=== PATIENT | male | born 1955 | race Caucasian/White ===

== ENCOUNTER 2017-10-03 08:42 | Emergency (ER) | payer SELFPAY ==
[~2017-10-03 08:42] MED LIST: Sodium Chloride 0.9% 1,000 ML BAG ONE; Sodium Chloride 0.9% 100 ML BAG ONE; Sodium Chloride 0.9% 500 ML BAG ONE
[2017-10-03] MEDS ORDERED: Pantoprazole 40 MG VIAL ONE ×2 (09:47→10:52)
[2017-10-03 09:56] LABS: INR-International Normal Ratio 1.1; PTT 26.3 SEC (22.9-36.1)
[2017-10-03 10:01] LABS: #Basophils 0.2 thou/uL (0.0-0.2); #Eosinphils 0.5 thou/uL (0.0-0.7); #Lymphocytes 2.8 thou/uL (1.20-3.40); #Monocytes 1.2 thou/uL (0.11-0.59); #Neutrophils 9.3 thou/uL (1.40-6.50); %Basophils 1.2 % (0.0-1.0); %Eosinophils 3.4 % (0.0-10.0); %Lymphocytes 19.9 % (21.0-51.0); %Monocytes 8.9 % (0.0-10.0); %Neutrophils 66.6 % (42.0-75.0); Hemoglobin 9.2 g/dL (14.0-18.0); Mean Corpuscular HGB CONC 35.6 g/dL (32.0-36.0); Mean Corpuscular Hemoglobin 34.9 pg (27.0-31.0); Mean Platelet Volume 7.1 fL (7.4-10.4); Platelet Count 242 thou/uL (130-400); RBC Distribution Width 12.2 % (11.5-14.5); Red Blood Cell (RBC) Count 2.63 mill/uL (4.70-6.10)
[2017-10-03 10:04] LABS: ALT (SGPT) 31 U/L (8-55); AST (SGOT) 31 U/L (5-34); Albumin 3.9 g/dL (3.4-4.8); Alkaline Phosphatase 71 U/L (40-150); Anion Gap 14 mmol/L (10-20); Anisocytosis SLIGHT = 6-15 cells (100X) (0-5/hpf); BUN (Urea Nitrogen) 24 mg/dL (8.4-25.7); Bilirubin, Total 0.5 mg/dL (0.2-1.2); Calc. Creatinine Clearance 0 mL/min (70-130); Calcium 8.7 mg/dL (7.8-10.44); Carbon Dioxide 23 mmol/L (23-31); Chloride 106 mmol/L (98-107); Estimated GFR-MDRD Greater than 90; Globulin 2.9 g/dL (2.4-3.5); Glucose 103 mg/dL (80-115); Poikilocytosis SLIGHT = 6-15 cells (100X) (0-5/hpf); Potassium 3.9 mmol/L (3.5-5.1); Protein, Total 6.8 g/dL (5.8-8.1); Schistocytes SLIGHT = 2-5 cells (100X) (0-1/hpf); Sodium 139 mmol/L (136-145)
[2017-10-03 10:05] LABS: PLT Morphology Comment Appears Adequate
[2017-10-03 19:07] LABS: Iron 63 ug/dL (65-175); Iron Binding Capacity, Total 303 mcg/dL (261-462)
== END 2017-10-03 12:52 | disposition short-term general hospital (02) ==
LOC: MADERS 08:42
DX: K92.2 Gastrointestinal hemorrhage, unspecified (principal); F17.220 Nicotine dependence, chewing tobacco, uncomplicated; I10 Essential (primary) hypertension; G40.909 Epilepsy, unspecified, not intractable, without status epilepticus; Z79.899 Other long term (current) drug therapy
CPT/HCPCS: 36415; 80053; 80185; 82274; 82728; 83540; 83550; 85025; 85610; 85730; 86850; 86900; 86901; 86922; 96361; 96365; 96376; C9113; J7050

== ENCOUNTER 2017-12-07 08:49 | Outpatient (CLI) | payer OTHER ==
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
== END 2017-12-07 08:50 | disposition home or self-care (01) ==
LOC: MADRAD 08:49
PROVIDERS: ATTEND Family Medicine
DX: M25.571 Pain in right ankle and joints of right foot (principal); M21.961 Unspecified acquired deformity of right lower leg; M79.89 Other specified soft tissue disorders; Z98.890 Other specified postprocedural states

== ENCOUNTER 2019-03-20 16:41 | Emergency (ER) | payer SELFPAY ==
[2019-03-20] MEDS ORDERED: Sodium Chloride 0.9% 1,000 ML ONE (17:23)
[2019-03-20 17:26] LABS: #Basophils 0.2 thou/uL (0.0-0.2); #Eosinphils 0.6 thou/uL (0.0-0.7); #Monocytes 1.1 thou/uL (0.11-0.59); #Neutrophils 6.2 thou/uL (1.40-6.50); %Eosinophils 5.6 % (0.0-10.0); %Lymphocytes 27.1 % (21.0-51.0); %Monocytes 9.8 % (0.0-10.0); %Neutrophils 55.5 % (42.0-75.0); Hemoglobin 14.6 g/dL (14.0-18.0); Mean Corpuscular HGB CONC 32.6 g/dL (32.0-36.0); Mean Corpuscular Hemoglobin 31.6 pg (27.0-31.0); Mean Platelet Volume 6.5 fL (7.4-10.4); Platelet Count 300 thou/uL (130-400); RBC Distribution Width 12.6 % (11.5-14.5); Red Blood Cell (RBC) Count 4.61 mill/uL (4.70-6.10); White Blood Cell (WBC) Count 11.2 thou/uL (4.8-10.8)
[2019-03-20 17:30] LABS: PTT 28.4 SEC (22.9-36.1)
[2019-03-20 17:31] LABS: INR-International Normal Ratio 0.9; Prothrombin Time 12.6 SEC (12.0-14.7)
[2019-03-20 17:42] LABS: ALT (SGPT) 26 U/L (8-55); AST (SGOT) 30 U/L (5-34); Albumin 4.4 g/dL (3.4-4.8); Alcohol Less than 10 mg/dL (Less than 10); Alkaline Phosphatase 122 U/L (40-150); Anion Gap 14 mmol/L (10-20); BUN (Urea Nitrogen) 14 mg/dL (8.4-25.7); Bilirubin, Total 0.4 mg/dL (0.2-1.2); Calc. Creatinine Clearance 0 mL/min (70-130); Calcium 9.2 mg/dL (7.8-10.44); Carbon Dioxide 27 mmol/L (23-31); Chloride 104 mmol/L (98-107); Estimated GFR-MDRD 85; Glucose 116 mg/dL (80-115); Lipase 43 U/L (8-78); Potassium 3.9 mmol/L (3.5-5.1); Protein, Total 7.4 g/dL (5.8-8.1); Sodium 141 mmol/L (136-145)
--- NOTE | 2019-03-20 17:57 | RAD ---
Portable frontal chest radiograph: 03/20/2019 COMPARISON: 06/11/2016 HISTORY: Syncope FINDINGS: Lungs are clear. Heart and mediastinal contours appear within normal limits. IMPRESSION: No acute findings.
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
[2019-03-20 18:31] LABS: Bilirubin Negative (Negative); Blood, Urine Trace (Negative); Glucose, Urine (Dipstick) Negative (Negative); Leukocyte Negative (Negative); Nitrite Negative (Negative); Protein, Urine (Dipstick) 100 mg/dL (Neg-Trace); Specific Gravity, Urine 1.025 (1.005-1.030); pH, Urine 5.5 (5.0-9.0)
--- NOTE | 2019-03-20 18:34 | CT ---
CT of the chest, abdomen, pelvis, thoracic spine, and lumbar spine: 03/20/2019 COMPARISON: 04/15/2014 HISTORY: Injury, trauma, pain TECHNIQUE: Axial CT imaging of the chest abdomen and pelvis obtained with IV contrast. Coronal and sa gittal reformatted imaging obtained FINDINGS: There is no axillary, mediastinal, or hilar lymphadenopathy and there is no pleural, perica rdial, or mediastinal fluid. There is atherosclerotic calcification of the coronary arterial vasculature. There is no pneumothorax noted on either side. The lung parenchyma demonstrates no acute abnormality on either side. No endobronchial lesion is evid ent. Review of the osseous structures of the chest demonstrates no acute finding. No free intraperitoneal air or fluid is seen. The gallbladder is nonvisualized. There are a few soft tissue nodules in the left upper quadrant sugg esting splenosis, stable when compared to the prior exam. Bilateral adrenal glands are unremarkable as is the pancreas. The right kidney is unremarkable. There is a stable stone within the proximal lef t ureter at the axial level of the L3 vertebral body measuring 8-9 mm. There is stable cortical thinning/scar involving the upper pole of the left kidney and the posterior aspect of the left kidney , also unchanged when compared to the 2014 exam. The rectum is slightly expanded and filled with stool. There is extensive diverticulosis of the desce nding colon and sigmoid colon with no evidence for diverticulitis. Appendix appears normal. No evidence for bowel obstruction. The vascular structures of the abdomen/pelvis appear patent. No lymphadenopathy is seen within the ab domen or pelvis. The osseous structures of the abdomen/pelvis demonstrate no acute findings. There is mild anterior wedging of the T5 vertebral body, stable. There is also mild stable anterior w edging of the T8 vertebral body. Anterior wedging of T12 noted consistent with remote fracture. Age-indeterminate mild superior endplate fractures are noted at L2 and L3, new when compared to the 2 014 examination. Bilateral facet hypertrophy noted at L4-5 and L5-S1. There is no paravertebral stranding at the L2 or L3 levels. IMPRESSION: Age indeterminant new mild superior endplate fractures at L2 and L3. Chronic fractures ar e favored given lack of adjacent soft tissue swelling. Clinical correlation is essential. Numerous stable chronic/incidental findings as detailed above.
[2019-03-20 18:42] LABS: Bacteria/HPF Rare-Few HPF (None Seen); Clarity Hazy (Clear); RBC/HPF 0-3 HPF (0-3); Squamous Epithelial 0-3 HPF (0-3); WBC/HPF 0-3 HPF (0-3)
== END 2019-03-20 19:40 | disposition short-term general hospital (02) ==
LOC: MADERS 16:41
DX: R55 Syncope and collapse (principal); K57.30 Diverticulosis of large intestine without perforation or abscess without bleeding; N20.0 Calculus of kidney; I10 Essential (primary) hypertension; Z87.891 Personal history of nicotine dependence; Z79.899 Other long term (current) drug therapy; Z79.51 Long term (current) use of inhaled steroids
CPT/HCPCS: 36416; 70450; 71045; 71260; 72125; 74177; 80053; 80307; 81003; 81015; 83690; 84484; 85025; 85610; 85730; 93005; 94760; 96360; 96361; J7050

== ENCOUNTER 2019-09-18 14:08 | Emergency (ER) | payer SELFPAY ==
[~2019-09-18 14:08] MED LIST changes: +Iopamidol 370 76% 100 ML VIAL ONE; -Sodium Chloride 0.9% 1,000 ML BAG ONE; -Sodium Chloride 0.9% 100 ML BAG ONE; -Sodium Chloride 0.9% 500 ML BAG ONE
[2019-09-18] MEDS ORDERED: Piperacillin/Tazobactam 4.5 GM VIAL ONE (14:49)
[2019-09-18] MEDS ORDERED: Ondansetron PF 4 MG/2 ML Vial ONE (14:49)
[2019-09-18 14:50] LABS: #Basophils 0.1 thou/uL (0.0-0.2); #Eosinphils 0.4 thou/uL (0.0-0.7); #Lymphocytes 3.2 thou/uL (1.20-3.40); #Monocytes 0.7 thou/uL (0.11-0.59); #Neutrophils 4.4 thou/uL (1.40-6.50); %Basophils 1.3 % (0.0-1.0); %Eosinophils 4.3 % (0.0-10.0); %Lymphocytes 36.3 % (21.0-51.0); %Monocytes 7.6 % (0.0-10.0); %Neutrophils 50.5 % (42.0-75.0); Hemoglobin 16.2 g/dL (14.0-18.0); Mean Corpuscular HGB CONC 30.8 g/dL (32.0-36.0); Mean Corpuscular Hemoglobin 31.9 pg (27.0-31.0); Mean Corpuscular Volume 103.4 fL (78.0-98.0); Mean Platelet Volume 7.4 fL (7.4-10.4); Platelet Count 289 thou/uL (130-400); RBC Distribution Width 12.5 % (11.5-14.5); Red Blood Cell (RBC) Count 5.09 mill/uL (4.70-6.10); White Blood Cell (WBC) Count 8.7 thou/uL (4.8-10.8)
[2019-09-18 15:01] LABS: ALT (SGPT) 37 U/L (8-55); AST (SGOT) 56 U/L (5-34); Albumin 3.9 g/dL (3.4-4.8); Alkaline Phosphatase 111 U/L (40-110); Anion Gap 18 mmol/L (10-20); BUN (Urea Nitrogen) 13 mg/dL (8.4-25.7); Bilirubin, Total 0.6 mg/dL (0.2-1.2); Calc. Creatinine Clearance 0 mL/min (70-130); Calcium 9.3 mg/dL (7.8-10.44); Carbon Dioxide 28 mmol/L (23-31); Chloride 98 mmol/L (98-107); Estimated GFR-MDRD 57; Globulin 3.9 g/dL (2.4-3.5); Glucose 122 mg/dL (80-115); Potassium 3.4 mmol/L (3.5-5.1); Protein, Total 7.8 g/dL (5.8-8.1); Sodium 141 mmol/L (136-145)
--- NOTE | 2019-09-18 15:56 | RAD ---
Exam: Chest one view HISTORY:Pain Comparison: 06/20/2019 FINDINGS: Cardiac silhouette:Upper normal cardiac silhouette Aorta: Unremarkable Pulmonary vessels: Normal Costophrenic angles: Clear LUNGS: No masses or consolidation. Pneumothorax: None Osseous abnormalities: None IMPRESSION: No acute cardiopulmonary process.
[2019-09-18 15:57] LABS: Bilirubin Negative (Negative); Blood, Urine Negative (Negative); Glucose, Urine (Dipstick) Negative (Negative); Leukocyte Negative (Negative); Nitrite Negative (Negative); Protein, Urine (Dipstick) 30 mg/dL (Neg-Trace); Urobilinogen 0.2 mg/dL (Less than 2)
[2019-09-18 15:59] LABS: Clarity Hazy (Clear)
[2019-09-18] MEDS ORDERED: Sodium Chloride 0.9% 100 ML ONE (16:01)
[2019-09-18 16:04] LABS: Bacteria/HPF Rare-Few HPF (None Seen); RBC/HPF 0-3 HPF (0-3); Squamous Epithelial 0-3 HPF (0-3); WBC/HPF 0-3 HPF (0-3)
--- NOTE | 2019-09-18 16:12 | CT ---
CT ABDOMEN WITH CONTRAST CT PELVIS WITH CONTRAST: DATE: 09/18/19 HISTORY: 64-year-old male with generalized abdominal pain, nausea, vomiting, and hypotension. COMPARISON: 03/20/19 TECHNIQUE: IV injection of iodinated contrast media: Administered. Oral contrast media: Not administered. FINDINGS: There is a new finding of gastric distention filled with large volume of ingested material and some g as. No small bowel dilation. There is fluid in the lumen throughout all small bowel loops and in the right colon from cecum to hepatic flexure. Normal appendix, right kidney, adrenals, urinary bladder, and pancreas. Spleen is absent. Numerous splenules in the splenic bed of the left upper quadrant. The 12 x 8 x 7 mm calculus remains lodged in the proximal left ureter at the L3 level. There is inter dyana worsening of now moderate to severe dilation of left renal upper, mid, and lower pole select dion josh, while others are spared. These involve the medial and posterior calyces, where there is severe c ortical volume loss, almost absent. The other portions of the left renal parenchyma, mainly the later al portions of the mid pole and upper pole, are preserved, and these areas have only mild calyceal di lation. There is a new finding of diffusely low hepatic attenuation consistent with fatty liver. No focal mila id or cystic renal lesion. No portal vein thrombosis. No consolidation at lung bases. No pneumoperito neum or ascites. There is a new finding of diffuse mural thickening of the left colon, from the splen ic flexure through the entire descending colon and entire sigmoid colon. There is pericolonic fat str anding representing edema, surrounding lower descending colon. There is a large number of diverticula throughout the descending colon and sigmoid colon. The rectum is distended with large volume of stoo l. IMPRESSION: 1. Extensive descending and sigmoid colonic diverticulosis. 2. Diffuse mural thickening of the left hemicolon suggestive of a left hemicolitis. 3. Pericolonic edema around lower descending colon could represent acute colonic diverticulitis in the left lower quadrant. 4. Chronic obstruction of left proximal ureter by a 12 mm calculus chronically lodged in the lef t proximal ureter. 5. There is selective hydronephrosis of some, but not all of left renal calyces, now moderate to severe. At least some of this calyceal dilation is on an ex vacuo basis due to adjacent absent renal parenchyma, but it is difficult to rule out the possibility of worsening of the hydronephrosis due t o the obstruction. Much or the left renal parenchyma is normal, and those portions are not associated with significant calyectsis. 6. Status post splenectomy. 7. Hepatic steatosis. JN R POS: [facility]
== END 2019-09-18 17:45 | disposition short-term general hospital (02) ==
LOC: MADERS 14:08
DX: K57.32 Diverticulitis of large intestine without perforation or abscess without bleeding (principal); N13.2 Hydronephrosis with renal and ureteral calculous obstruction; K52.9 Noninfective gastroenteritis and colitis, unspecified; E03.9 Hypothyroidism, unspecified; I10 Essential (primary) hypertension; J44.9 Chronic obstructive pulmonary disease, unspecified; M19.90 Unspecified osteoarthritis, unspecified site; G43.909 Migraine, unspecified, not intractable, without status migrainosus; E66.9 Obesity, unspecified; N40.0 Benign prostatic hyperplasia without lower urinary tract symptoms; F32.9 Major depressive disorder, single episode, unspecified; Z87.891 Personal history of nicotine dependence; Z79.899 Other long term (current) drug therapy; Z79.52 Long term (current) use of systemic steroids; Z79.2 Long term (current) use of antibiotics
CPT/HCPCS: 36415; 71045; 74177; 80053; 81003; 81015; 83605; 83880; 84484; 85025; 87040; 87086; 87804; 93005; 96361; 96365; 96375; J2405; J2543; J3490; J7050; Q9967

== ENCOUNTER → 2019-12-23 | Day surgery (SDC) | payer OTHER, SELFPAY ==
[~2019-12-23] MED LIST changes: -Iopamidol 370 76% 100 ML VIAL ONE; +Sodium Chloride 0.9% 100 ML BAG ONE; +cefTRIAXone\\ROCEPHIN 2 GM VIAL ONE
== END ==
LOC: MADER/OP 13:20
PROVIDERS: ATTEND Internal Medicine Infectious Disease
DX: M00.9 Pyogenic arthritis, unspecified (principal); M86.8X6 Other osteomyelitis, lower leg; T84.84XA Pain due to internal orthopedic prosthetic devices, implants and grafts, initial encounter; Z79.2 Long term (current) use of antibiotics; Z88.2 Allergy status to sulfonamides
CPT/HCPCS: 96365; J0696; J3490

== ENCOUNTER → 2019-12-24 | Day surgery (SDC) | payer OTHER | LOC: MADER/OP 14:47 | PROVIDERS: ATTEND Internal Medicine Infectious Disease | DX: M00.9 Pyogenic arthritis, unspecified (principal); M86.8X6 Other osteomyelitis, lower leg; A41.9 Sepsis, unspecified organism; T84.84XA Pain due to internal orthopedic prosthetic devices, implants and grafts, initial encounter; Z88.2 Allergy status to sulfonamides | CPT/HCPCS: J0696; J3490 ==

== ENCOUNTER → 2019-12-25 | Day surgery (SDC) | payer OTHER | LOC: MADER/OP 12:59 | PROVIDERS: ATTEND Internal Medicine Infectious Disease | DX: M00.9 Pyogenic arthritis, unspecified (principal); M86.8X6 Other osteomyelitis, lower leg; A41.9 Sepsis, unspecified organism; T84.84XA Pain due to internal orthopedic prosthetic devices, implants and grafts, initial encounter; Z88.2 Allergy status to sulfonamides | CPT/HCPCS: J0696; J3490 ==

== ENCOUNTER → 2019-12-26 | Day surgery (SDC) | payer OTHER | LOC: MADER/OP 13:44 | PROVIDERS: ATTEND Internal Medicine Infectious Disease | DX: M00.9 Pyogenic arthritis, unspecified (principal); M86.8X6 Other osteomyelitis, lower leg; A41.9 Sepsis, unspecified organism; T84.84XA Pain due to internal orthopedic prosthetic devices, implants and grafts, initial encounter; Z88.2 Allergy status to sulfonamides | CPT/HCPCS: J0696; J3490 ==

== ENCOUNTER → 2019-12-27 | Day surgery (SDC) | payer OTHER | LOC: MADER/OP 13:59 | PROVIDERS: ATTEND Internal Medicine Infectious Disease | DX: A41.9 Sepsis, unspecified organism (principal); T84.84XA Pain due to internal orthopedic prosthetic devices, implants and grafts, initial encounter; M00.9 Pyogenic arthritis, unspecified; M86.8X6 Other osteomyelitis, lower leg; Z88.2 Allergy status to sulfonamides | CPT/HCPCS: J0696; J3490 ==

== ENCOUNTER → 2019-12-28 | Day surgery (SDC) | payer OTHER | LOC: MADER/OP 15:41 | PROVIDERS: ATTEND Internal Medicine Infectious Disease | DX: A41.9 Sepsis, unspecified organism (principal); T84.84XA Pain due to internal orthopedic prosthetic devices, implants and grafts, initial encounter; M00.9 Pyogenic arthritis, unspecified; M86.8X6 Other osteomyelitis, lower leg; Z88.2 Allergy status to sulfonamides | CPT/HCPCS: J0696; J3490 ==

== ENCOUNTER → 2019-12-29 | Day surgery (SDC) | payer OTHER ==
[2019-12-29 18:28] LABS: #Basophils 0.2 thou/uL (0.0-0.2); #Lymphocytes 3.6 thou/uL (1.20-3.40); #Monocytes 1.1 thou/uL (0.11-0.59); #Neutrophils 4.9 thou/uL (1.40-6.50); %Basophils 1.8 % (0.0-1.0); %Eosinophils 8.9 % (0.0-10.0); %Lymphocytes 33.4 % (21.0-51.0); %Neutrophils 45.9 % (42.0-75.0); Hemoglobin 14.4 g/dL (14.0-18.0); Mean Corpuscular HGB CONC 31.5 g/dL (32.0-36.0); Mean Corpuscular Hemoglobin 31.8 pg (27.0-31.0); Mean Corpuscular Volume 100.9 fL (78.0-98.0); Platelet Count 317 thou/uL (130-400); RBC Distribution Width 12.2 % (11.5-14.5); Red Blood Cell (RBC) Count 4.51 mill/uL (4.70-6.10); White Blood Cell (WBC) Count 10.7 thou/uL (4.8-10.8)
[2019-12-29 19:35] LABS: ALT (SGPT) 31 U/L (8-55); AST (SGOT) 30 U/L (5-34); Albumin 4.3 g/dL (3.4-4.8); Alkaline Phosphatase 106 U/L (40-110); Anion Gap 19 mmol/L (10-20); BUN (Urea Nitrogen) 10 mg/dL (8.4-25.7); Bilirubin, Total 0.3 mg/dL (0.2-1.2); CRP (Inflammatory) 1.18 mg/dL (= or < 0.5); Calc. Creatinine Clearance 0 mL/min (70-130); Calcium 9.6 mg/dL (7.8-10.44); Carbon Dioxide 26 mmol/L (23-31); Chloride 100 mmol/L (98-107); Estimated GFR-MDRD 84; Globulin 3.8 g/dL (2.4-3.5); Glucose 111 mg/dL (80-115); Potassium 3.7 mmol/L (3.5-5.1); Protein, Total 8.1 g/dL (5.8-8.1); Sodium 141 mmol/L (136-145)
== END ==
LOC: MADER/OP 16:58
PROVIDERS: ATTEND Internal Medicine Infectious Disease
DX: A41.9 Sepsis, unspecified organism (principal); T84.84XA Pain due to internal orthopedic prosthetic devices, implants and grafts, initial encounter; M00.9 Pyogenic arthritis, unspecified; M86.8X7 Other osteomyelitis, ankle and foot; Z88.2 Allergy status to sulfonamides
CPT/HCPCS: 36415; 80053; 85025; 86140; J0696; J3490

== ENCOUNTER → 2019-12-30 | Day surgery (SDC) | payer OTHER | LOC: MADER/OP 15:25 | PROVIDERS: ATTEND Psychiatry & Neurology Neurology | DX: A41.9 Sepsis, unspecified organism (principal); T84.84XA Pain due to internal orthopedic prosthetic devices, implants and grafts, initial encounter; M00.9 Pyogenic arthritis, unspecified; M86.8X7 Other osteomyelitis, ankle and foot; Z88.2 Allergy status to sulfonamides | CPT/HCPCS: J0696; J3490 ==

== ENCOUNTER → 2019-12-31 | Day surgery (SDC) | payer OTHER ==
[~2019-12-31] MED LIST changes: +Sodium Chloride Irrig Solution 250 ML BOT ONE
== END ==
LOC: MADER/OP 17:00
PROVIDERS: ATTEND Internal Medicine Infectious Disease
DX: A41.9 Sepsis, unspecified organism (principal); T84.84XA Pain due to internal orthopedic prosthetic devices, implants and grafts, initial encounter; M00.9 Pyogenic arthritis, unspecified; M86.8X7 Other osteomyelitis, ankle and foot; Z88.2 Allergy status to sulfonamides
CPT/HCPCS: J0696; J3490

== ENCOUNTER → 2020-01-01 | Day surgery (SDC) | payer OTHER ==
[~2020-01-01] MED LIST changes: -Sodium Chloride Irrig Solution 250 ML BOT ONE
== END ==
LOC: MADER/OP 19:03
PROVIDERS: ATTEND Internal Medicine Infectious Disease
DX: A41.9 Sepsis, unspecified organism (principal); T84.84XA Pain due to internal orthopedic prosthetic devices, implants and grafts, initial encounter; M00.9 Pyogenic arthritis, unspecified; M86.8X7 Other osteomyelitis, ankle and foot; Z88.2 Allergy status to sulfonamides
CPT/HCPCS: 96365; J0696; J3490

== ENCOUNTER 2020-01-02 20:33 | Emergency (ER) | payer OTHER ==
[2020-01-02 22:44] LABS: #Basophils 0.1 thou/uL (0.0-0.2); #Eosinphils 0.9 thou/uL (0.0-0.7); #Lymphocytes 2.7 thou/uL (1.20-3.40); #Monocytes 0.9 thou/uL (0.11-0.59); #Neutrophils 6.2 thou/uL (1.40-6.50); %Basophils 1.3 % (0.0-1.0); %Eosinophils 8.2 % (0.0-10.0); %Lymphocytes 24.5 % (21.0-51.0); %Monocytes 8.7 % (0.0-10.0); %Neutrophils 57.3 % (42.0-75.0); Hemoglobin 14.2 g/dL (14.0-18.0); Mean Corpuscular HGB CONC 32.1 g/dL (32.0-36.0); Mean Corpuscular Hemoglobin 31.5 pg (27.0-31.0); Mean Corpuscular Volume 97.9 fL (78.0-98.0); Mean Platelet Volume 7.5 fL (7.4-10.4); Platelet Count 364 thou/uL (130-400); RBC Distribution Width 12.1 % (11.5-14.5); White Blood Cell (WBC) Count 10.8 thou/uL (4.8-10.8)
[2020-01-02 22:54] LABS: CRP (Inflammatory) 1.22 mg/dL (= or < 0.5)
[2020-01-02 22:56] LABS: ALT (SGPT) 24 U/L (8-55); AST (SGOT) 28 U/L (5-34); Albumin 4.2 g/dL (3.4-4.8); Alkaline Phosphatase 85 U/L (40-110); Anion Gap 19 mmol/L (10-20); BUN (Urea Nitrogen) 11 mg/dL (8.4-25.7); Bilirubin, Total 0.4 mg/dL (0.2-1.2); Calc. Creatinine Clearance 0 mL/min (70-130); Calcium 9.9 mg/dL (7.8-10.44); Carbon Dioxide 26 mmol/L (23-31); Chloride 99 mmol/L (98-107); Estimated GFR-MDRD Greater than 90; Globulin 3.8 g/dL (2.4-3.5); Glucose 115 mg/dL (80-115); Lipase 29 U/L (8-78); Potassium 3.9 mmol/L (3.5-5.1); Sodium 140 mmol/L (136-145)
[2020-01-02] MEDS ORDERED: Pantoprazole 40 MG VIAL ONE (23:21)
--- NOTE | 2020-01-02 23:26 | CT ---
EXAM: CT Abdomen Pelvis W Con PROVIDED CLINICAL HISTORY: Abdominal pain COMPARISON: 09/18/2019 FINDINGS: The visualized lung bases are free of significant opacity. The liver, spleen, pancreas, right kidney and adrenal glands demonstrate a stable CT appearance. Sple en is again not visualized. There is a persistent left proximal ureteral calculus. There is parenchymal volume loss involving the posterior aspects of the left kidney. Several renal calculi are also seen similar to prior. There were several loops of dilated fluid-filled small bowel within the central abdomen, measuring up to 3.6 cm. There is rather abrupt transition to normal caliber bowel in the anterior midabdomen about the level of the umbilicus. No cause is evident. There is no inflammatory fat stranding, free i ntraperitoneal fluid or free intraperitoneal air. The appendix appears normal. Sigmoid colonic diverticulosis without CT evidence for diverticulitis. The osseous structures demonstrate no concerning lytic or blastic lesions. IMPRESSION: Findings compatible with small bowel obstruction.
[2020-01-02] MEDS ORDERED: Sodium Chloride 0.9% 1,000 ML ONE (23:38)
[2020-01-03] MEDS ORDERED: Ondansetron PF 4 MG/2 ML Vial ONE (00:14)
[2020-01-03] MEDS ORDERED: Morphine 4 MG/ML VIAL ONE (00:14)
[2020-01-03 01:08] LABS: Bilirubin Negative (Negative); Blood, Urine Negative (Negative); Clarity Clear (Clear); Glucose, Urine (Dipstick) Negative (Negative); Leukocyte Negative (Negative); Nitrite Negative (Negative); Protein, Urine (Dipstick) Trace mg/dL (Neg-Trace); Urobilinogen 0.2 mg/dL (Less than 2)
== END 2020-01-03 00:45 | disposition short-term general hospital (02) ==
LOC: MADERS 20:33
DX: K56.609 Unspecified intestinal obstruction, unspecified as to partial versus complete obstruction (principal); R11.0 Nausea; E03.9 Hypothyroidism, unspecified; I10 Essential (primary) hypertension; M19.90 Unspecified osteoarthritis, unspecified site; J44.9 Chronic obstructive pulmonary disease, unspecified; G43.909 Migraine, unspecified, not intractable, without status migrainosus; E66.9 Obesity, unspecified; F32.9 Major depressive disorder, single episode, unspecified; Z87.891 Personal history of nicotine dependence; Z79.899 Other long term (current) drug therapy; Z79.51 Long term (current) use of inhaled steroids
CPT/HCPCS: 36415; 74177; 80053; 81003; 82150; 83690; 84484; 85025; 86140; 93005; 96361; 96374; 96375; C9113; J2270; J2405; J7050

== ENCOUNTER → 2020-01-02 | Day surgery (SDC) | payer OTHER | LOC: MADER/OP 18:52 | PROVIDERS: ATTEND Internal Medicine Infectious Disease | DX: A41.9 Sepsis, unspecified organism (principal); T84.84XA Pain due to internal orthopedic prosthetic devices, implants and grafts, initial encounter; M00.9 Pyogenic arthritis, unspecified; M86.8X7 Other osteomyelitis, ankle and foot; Z88.2 Allergy status to sulfonamides | CPT/HCPCS: 96365; J0696; J3490 ==

== ENCOUNTER → 2020-01-12 | Day surgery (SDC) | payer OTHER | LOC: MADER/OP 12:48 | PROVIDERS: ATTEND Internal Medicine Infectious Disease | DX: Z48.89 Encounter for other specified surgical aftercare (principal); A41.9 Sepsis, unspecified organism; T84.84XA Pain due to internal orthopedic prosthetic devices, implants and grafts, initial encounter; M00.9 Pyogenic arthritis, unspecified; M86.8X6 Other osteomyelitis, lower leg; Z88.2 Allergy status to sulfonamides | CPT/HCPCS: J0696; J3490 ==

== ENCOUNTER → 2020-01-13 | Day surgery (SDC) | payer OTHER | LOC: MADER/OP 16:45 | PROVIDERS: ATTEND Internal Medicine Infectious Disease | DX: Z48.89 Encounter for other specified surgical aftercare (principal); A41.9 Sepsis, unspecified organism; T84.84XA Pain due to internal orthopedic prosthetic devices, implants and grafts, initial encounter; M00.9 Pyogenic arthritis, unspecified; M86.8X6 Other osteomyelitis, lower leg; Z88.2 Allergy status to sulfonamides | CPT/HCPCS: J0696; J3490 ==

== ENCOUNTER → 2020-01-14 | Day surgery (SDC) | payer OTHER | END | disposition home or self-care (01) | LOC: MADER/OP 17:21 | PROVIDERS: ATTEND Internal Medicine Infectious Disease | DX: M00.9 Pyogenic arthritis, unspecified (principal); M86.8X6 Other osteomyelitis, lower leg; T84.84XD Pain due to internal orthopedic prosthetic devices, implants and grafts, subsequent encounter; Z79.2 Long term (current) use of antibiotics | CPT/HCPCS: J0696; J3490 ==

== ENCOUNTER → 2020-01-15 | Day surgery (SDC) | payer OTHER | LOC: MADER/OP 16:31 | PROVIDERS: ATTEND Emergency Medicine | DX: T84.84XA Pain due to internal orthopedic prosthetic devices, implants and grafts, initial encounter (principal); A41.9 Sepsis, unspecified organism; M00.9 Pyogenic arthritis, unspecified; M86.8X6 Other osteomyelitis, lower leg; Z88.2 Allergy status to sulfonamides | CPT/HCPCS: J0696; J3490 ==

== ENCOUNTER → 2020-01-16 | Day surgery (SDC) | payer OTHER ==
[~2020-01-16] MED LIST changes: +Orphenadrine Citrate 60 MG/2 ML VIAL ONE; +Sodium Chloride 0.9% 1,000 ML ONE; +Sodium Chloride 0.9% 100 ML ONE
== END ==
LOC: MADERS 15:10
PROVIDERS: ATTEND Internal Medicine Infectious Disease
DX: A41.9 Sepsis, unspecified organism (principal); T84.84XA Pain due to internal orthopedic prosthetic devices, implants and grafts, initial encounter; M00.9 Pyogenic arthritis, unspecified; M86.8X6 Other osteomyelitis, lower leg; Z88.2 Allergy status to sulfonamides
CPT/HCPCS: 96365; J0696; J3490

== ENCOUNTER → 2020-01-17 | Day surgery (SDC) | payer OTHER ==
[~2020-01-17] MED LIST changes: -Orphenadrine Citrate 60 MG/2 ML VIAL ONE; -Sodium Chloride 0.9% 1,000 ML ONE; -Sodium Chloride 0.9% 100 ML ONE
== END ==
LOC: MADER/OP 16:50
PROVIDERS: ATTEND Internal Medicine Infectious Disease
DX: A41.9 Sepsis, unspecified organism (principal); T84.84XA Pain due to internal orthopedic prosthetic devices, implants and grafts, initial encounter; M00.9 Pyogenic arthritis, unspecified; M86.8X6 Other osteomyelitis, lower leg; Z88.2 Allergy status to sulfonamides
CPT/HCPCS: 96365; J0696; J3490; J7050

== ENCOUNTER → 2020-01-18 | Day surgery (SDC) | payer OTHER | LOC: MADER/OP 11:21 | PROVIDERS: ATTEND Internal Medicine Infectious Disease | DX: A41.9 Sepsis, unspecified organism (principal); T84.84XA Pain due to internal orthopedic prosthetic devices, implants and grafts, initial encounter; M00.9 Pyogenic arthritis, unspecified; M86.8X6 Other osteomyelitis, lower leg; Z88.2 Allergy status to sulfonamides | CPT/HCPCS: 96365; J0696; J2360; J3490 ==

== ENCOUNTER → 2020-01-19 | Day surgery (SDC) | payer OTHER ==
[2020-01-19 16:29] LABS: #Basophils 0.1 thou/uL (0.0-0.2); #Lymphocytes 3.1 thou/uL (1.20-3.40); #Monocytes 0.8 thou/uL (0.11-0.59); #Neutrophils 4.3 thou/uL (1.40-6.50); %Basophils 1.2 % (0.0-1.0); %Eosinophils 10.2 % (0.0-10.0); %Lymphocytes 33.1 % (21.0-51.0); %Monocytes 8.8 % (0.0-10.0); %Neutrophils 46.7 % (42.0-75.0); Hemoglobin 12.8 g/dL (14.0-18.0); Mean Corpuscular HGB CONC 31.5 g/dL (32.0-36.0); Mean Corpuscular Hemoglobin 31.6 pg (27.0-31.0); Mean Corpuscular Volume 100.3 fL (78.0-98.0); Mean Platelet Volume 6.6 fL (7.4-10.4); Platelet Count 426 thou/uL (130-400); RBC Distribution Width 12.2 % (11.5-14.5); Red Blood Cell (RBC) Count 4.04 mill/uL (4.70-6.10); White Blood Cell (WBC) Count 9.3 thou/uL (4.8-10.8)
[2020-01-19 16:34] LABS: ALT (SGPT) 20 U/L (8-55); AST (SGOT) 23 U/L (5-34); Alkaline Phosphatase 87 U/L (40-110); Anion Gap 18 mmol/L (10-20); BUN (Urea Nitrogen) 11 mg/dL (8.4-25.7); Bilirubin, Total 0.4 mg/dL (0.2-1.2); CRP (Inflammatory) 1.03 mg/dL (= or < 0.5); Calc. Creatinine Clearance 0 mL/min (70-130); Calcium 9.4 mg/dL (7.8-10.44); Carbon Dioxide 26 mmol/L (23-31); Chloride 100 mmol/L (98-107); Estimated GFR-MDRD Greater than 90; Globulin 3.7 g/dL (2.4-3.5); Glucose 95 mg/dL (80-115); Potassium 4.1 mmol/L (3.5-5.1); Protein, Total 7.7 g/dL (5.8-8.1); Sodium 140 mmol/L (136-145)
== END ==
LOC: MADER/OP 15:52
PROVIDERS: ATTEND Internal Medicine Infectious Disease
DX: A41.9 Sepsis, unspecified organism (principal); T84.84XA Pain due to internal orthopedic prosthetic devices, implants and grafts, initial encounter; M00.9 Pyogenic arthritis, unspecified; M86.8X6 Other osteomyelitis, lower leg; Z88.2 Allergy status to sulfonamides
CPT/HCPCS: 36415; 80053; 85025; 86140; 96365; J0696; J3490

== ENCOUNTER → 2020-01-20 | Day surgery (SDC) | payer OTHER ==
[~2020-01-20] MED LIST changes: +Sodium Chloride 0.9% 100 ML ONE; +cefTRIAXone\\ROCEPHIN 1 GM VIAL ONE
== END ==
LOC: MADER/OP 13:19
PROVIDERS: ATTEND Internal Medicine Infectious Disease
DX: A41.9 Sepsis, unspecified organism (principal); T84.84XA Pain due to internal orthopedic prosthetic devices, implants and grafts, initial encounter; M00.9 Pyogenic arthritis, unspecified; M86.8X6 Other osteomyelitis, lower leg; Z88.2 Allergy status to sulfonamides
CPT/HCPCS: 96365; J0696; J3490

== ENCOUNTER → 2020-01-22 | Day surgery (SDC) | payer OTHER ==
[~2020-01-22] MED LIST changes: -Sodium Chloride 0.9% 100 ML ONE; -cefTRIAXone\\ROCEPHIN 1 GM VIAL ONE
== END ==
LOC: MADER/OP 16:48
PROVIDERS: ATTEND Internal Medicine Infectious Disease
DX: A41.9 Sepsis, unspecified organism (principal); T84.84XA Pain due to internal orthopedic prosthetic devices, implants and grafts, initial encounter
CPT/HCPCS: 96365; J0696; J3490

== ENCOUNTER → 2020-01-23 | Day surgery (SDC) | payer OTHER | LOC: MADER/OP 11:14 | PROVIDERS: ATTEND Internal Medicine Infectious Disease | DX: A41.9 Sepsis, unspecified organism (principal); T84.84XA Pain due to internal orthopedic prosthetic devices, implants and grafts, initial encounter; M00.9 Pyogenic arthritis, unspecified; M86.9 Osteomyelitis, unspecified; Z88.2 Allergy status to sulfonamides | CPT/HCPCS: 96365; J0696; J3490 ==

== ENCOUNTER → 2020-01-24 | Day surgery (SDC) | payer OTHER | LOC: MADER/OP 15:49 | PROVIDERS: ATTEND Internal Medicine Infectious Disease | DX: A41.9 Sepsis, unspecified organism (principal); T84.84XA Pain due to internal orthopedic prosthetic devices, implants and grafts, initial encounter; M00.9 Pyogenic arthritis, unspecified; M86.9 Osteomyelitis, unspecified; Z88.2 Allergy status to sulfonamides | CPT/HCPCS: 96365; J0696; J3490 ==

== ENCOUNTER → 2020-01-25 | Day surgery (SDC) | payer OTHER ==
[~2020-01-25] MED LIST changes: +cefTRIAXone\\ROCEPHIN 1 GM VIAL ONE; -cefTRIAXone\\ROCEPHIN 2 GM VIAL ONE
== END ==
LOC: MADER/OP 14:16
PROVIDERS: ATTEND Internal Medicine Infectious Disease
DX: A41.9 Sepsis, unspecified organism (principal); T84.84XA Pain due to internal orthopedic prosthetic devices, implants and grafts, initial encounter; M00.9 Pyogenic arthritis, unspecified; M86.9 Osteomyelitis, unspecified; Z88.2 Allergy status to sulfonamides
CPT/HCPCS: 96365; J0696; J3490

== ENCOUNTER → 2020-01-26 | Day surgery (SDC) | payer OTHER ==
[~2020-01-26] MED LIST changes: -cefTRIAXone\\ROCEPHIN 1 GM VIAL ONE; +cefTRIAXone\\ROCEPHIN 2 GM VIAL ONE
[2020-01-26 17:21] LABS: #Basophils 0.2 thou/uL (0.0-0.2); #Eosinphils 0.8 thou/uL (0.0-0.7); #Lymphocytes 2.9 thou/uL (1.20-3.40); #Monocytes 0.9 thou/uL (0.11-0.59); #Neutrophils 3.3 thou/uL (1.40-6.50); %Eosinophils 9.4 % (0.0-10.0); %Lymphocytes 36.4 % (21.0-51.0); %Neutrophils 41.3 % (42.0-75.0); Hemoglobin 12.8 g/dL (14.0-18.0); Mean Corpuscular HGB CONC 31.8 g/dL (32.0-36.0); Mean Corpuscular Hemoglobin 32.3 pg (27.0-31.0); Mean Corpuscular Volume 101.5 fL (78.0-98.0); Platelet Count 281 thou/uL (130-400); RBC Distribution Width 12.2 % (11.5-14.5); Red Blood Cell (RBC) Count 3.96 mill/uL (4.70-6.10)
[2020-01-26 17:49] LABS: ALT (SGPT) 16 U/L (8-55); AST (SGOT) 19 U/L (5-34); Albumin 4.1 g/dL (3.4-4.8); Alkaline Phosphatase 83 U/L (40-110); Anion Gap 16 mmol/L (10-20); BUN (Urea Nitrogen) 13 mg/dL (8.4-25.7); Bilirubin, Total 0.3 mg/dL (0.2-1.2); CRP (Inflammatory) 0.76 mg/dL (= or < 0.5); Calc. Creatinine Clearance 0 mL/min (70-130); Calcium 9.4 mg/dL (7.8-10.44); Carbon Dioxide 27 mmol/L (23-31); Chloride 103 mmol/L (98-107); Estimated GFR-MDRD 86; Globulin 3.5 g/dL (2.4-3.5); Glucose 106 mg/dL (80-115); Potassium 3.8 mmol/L (3.5-5.1); Protein, Total 7.6 g/dL (5.8-8.1); Sodium 142 mmol/L (136-145)
== END ==
LOC: MADER/OP 16:57
PROVIDERS: ATTEND Internal Medicine Infectious Disease
DX: A41.9 Sepsis, unspecified organism (principal); T84.84XA Pain due to internal orthopedic prosthetic devices, implants and grafts, initial encounter; M00.9 Pyogenic arthritis, unspecified; M86.9 Osteomyelitis, unspecified; Z88.2 Allergy status to sulfonamides
CPT/HCPCS: 80053; 85025; 86140; 96365; J0696; J3490

== ENCOUNTER → 2020-01-27 | Day surgery (SDC) | payer OTHER | LOC: MADER/OP 18:35 | PROVIDERS: ATTEND Internal Medicine Infectious Disease | DX: A41.9 Sepsis, unspecified organism (principal); T84.84XA Pain due to internal orthopedic prosthetic devices, implants and grafts, initial encounter; M00.9 Pyogenic arthritis, unspecified; M86.9 Osteomyelitis, unspecified; Z88.2 Allergy status to sulfonamides | CPT/HCPCS: 96365; J0696; J3490 ==

== ENCOUNTER → 2020-01-28 | Day surgery (SDC) | payer OTHER | LOC: MADER/OP 16:57 | PROVIDERS: ATTEND Internal Medicine Infectious Disease | DX: A41.9 Sepsis, unspecified organism (principal); T84.84XA Pain due to internal orthopedic prosthetic devices, implants and grafts, initial encounter; M00.9 Pyogenic arthritis, unspecified; M86.9 Osteomyelitis, unspecified; Z88.2 Allergy status to sulfonamides | CPT/HCPCS: 96365; J0696; J3490 ==

== ENCOUNTER → 2020-01-29 | Day surgery (SDC) | payer OTHER | LOC: MADER/OP 17:26 | PROVIDERS: ATTEND Internal Medicine Infectious Disease | DX: A41.9 Sepsis, unspecified organism (principal); T84.84XA Pain due to internal orthopedic prosthetic devices, implants and grafts, initial encounter; M00.9 Pyogenic arthritis, unspecified; M86.9 Osteomyelitis, unspecified; Z88.2 Allergy status to sulfonamides | CPT/HCPCS: 96365; J0696; J3490 ==

== ENCOUNTER → 2020-01-30 | Day surgery (SDC) | payer OTHER | LOC: MADER/OP 17:18 | PROVIDERS: ATTEND Internal Medicine Infectious Disease | DX: A41.9 Sepsis, unspecified organism (principal); T84.84XA Pain due to internal orthopedic prosthetic devices, implants and grafts, initial encounter; M00.9 Pyogenic arthritis, unspecified; M86.9 Osteomyelitis, unspecified; Z88.2 Allergy status to sulfonamides | CPT/HCPCS: 96365; J0696; J3490 ==

== ENCOUNTER → 2020-01-31 | Day surgery (SDC) | payer OTHER | LOC: MADER/OP 18:53 | PROVIDERS: ATTEND Internal Medicine Infectious Disease | DX: A41.9 Sepsis, unspecified organism (principal); T84.84XA Pain due to internal orthopedic prosthetic devices, implants and grafts, initial encounter; M00.9 Pyogenic arthritis, unspecified; M86.9 Osteomyelitis, unspecified; Z88.2 Allergy status to sulfonamides | CPT/HCPCS: 96365; J0696; J3490 ==

== ENCOUNTER 2020-09-27 19:33 | Emergency (ER) | payer OTHER ==
[2020-09-27] MEDS ORDERED: Sodium Chloride 0.9% 1,000 ML ONE ×2 (20:13→22:02)
--- NOTE | 2020-09-27 20:47 | CT ---
Head CT without contrast 09/27/2020: COMPARISON: 06/26/2019 HISTORY: Fever, altered mental status, weakness, seizure TECHNIQUE: Axial CT imaging at 5 mm intervals from vertex through skull base without contrast. Abad l and sagittal reformatted imaging obtained FINDINGS: There is diffuse mild/moderate mucosal thickening of the paranasal sinuses with evidence of prior paranasal sinus surgery. No displaced calvarial fracture. No intracranial hemorrhage, midline shift, mass effect, or ventricular enlargement. There is mild diffuse cerebral volume loss wi th associated prominence of the CSF containing spaces. If there is clinical concern for a seizure focus, follow-up brain MRI suggested. IMPRESSION: No intracranial hemorrhage.
[2020-09-27 21:00] LABS: Amphetamine Not Detected (NotDetected); Barbiturates Screen Not Detected (NotDetected); Benzodiazepine Screen Not Detected (NotDetected); Cocaine Metabolite Screen Not Detected (NotDetected); Medtox Control Line Valid? VALID (VALID); Methadone Not Detected (NotDetected); Methamphetamine Not Detected (NotDetected); Opiate Screen Not Detected (NotDetected); Oxycodone Screen Not Detected (NotDetected); Phencyclidine (PCP) Not Detected (NotDetected); THC/Cannabinoid Screen Not Detected (NotDetected); Tricyclic Screen Not Detected (NotDetected)
[2020-09-27] MEDS ORDERED: Multivit, Adult Inj 10 ML VIAL ONE (21:01)
[2020-09-27] MEDS ORDERED: Dextrose 5 %-0.45 % NaCl 1,000 ML ONE (21:01)
[2020-09-27] MEDS ORDERED: Thiamine HCl 200 MG/2 ML VIAL ONE (21:01)
--- NOTE | 2020-09-27 21:27 | RAD ---
RADIOGRAPH CHEST 1 VIEW: DATE: 09-27-2020 HISTORY: 65-year-old male with fever. FINDINGS: There is no air space density or pulmonary edema. The lateral costophrenic angles are sharp. Patient 's chin obscures bilateral lung apices, especially the right. The previously demonstrated bilateral c entral vascular catheters, and EG tube, on the study of 01-05-2020, have been removed. IMPRESSION: No acute pulmonary findings. oscar POS: [facility]
[2020-09-27] MEDS ORDERED: Sodium Chloride 0.9% 100 ML ONE (22:32)
[2020-09-27] MEDS ORDERED: Cefepime 2 GM VIAL ONE (22:32)
[2020-09-27] MEDS ORDERED: Sodium Chloride 0.9% 250 ML 250 ML ONE ×2 (23:00)
[2020-09-27 23:36] LABS: Hemoglobin 15.2 g/dL (14.0-18.0); Mean Corpuscular HGB CONC 32.3 g/dL (32.0-36.0); Mean Corpuscular Hemoglobin 32.5 pg (27.0-31.0); Platelet Count 177 thou/uL (130-400); RBC Distribution Width 12.6 % (11.5-14.5); Red Blood Cell (RBC) Count 4.68 mill/uL (4.70-6.10); White Blood Cell (WBC) Count 11.8 thou/uL (4.8-10.8)
[2020-09-28 00:05] LABS: Manual Diff?? YES
[2020-09-28] MEDS ORDERED: Enoxaparin Sodium 100 MG/ML SYRINGE ONE (00:05)
[2020-09-28] MEDS ORDERED: Aspirin Chewable 81 MG TAB ONE (00:05)
[2020-09-28 00:06] LABS: #Neutrophils 9.7 thou/uL (1.40-6.50); %Basophils 1.4 % (0.0-1.0); %Lymphocytes 7.4 % (21.0-51.0); %Neutrophils 82.2 % (42.0-75.0)
[2020-09-28 00:07] LABS: #Monocytes 1.1 thou/uL (0.11-0.59); MDiff Complete? YES
[2020-09-28 00:08] LABS: Band 4 % (5-11); Eosinophils 2 % (0-10); Lymphocytes 9 % (21-51); Monocytes 10 % (0-10); Neutrophil 75 % (42-75)
[2020-09-28 00:10] LABS: Clarity Clear (Clear); Specific Gravity, Urine 1.025 (1.005-1.030)
[2020-09-28 00:11] LABS: Bilirubin Negative (Negative); Glucose, Urine (Dipstick) Negative (Negative); Ketone, Urine Negative (Negative); Leukocyte Negative (Negative); Nitrite Negative (Negative); Protein, Urine (Dipstick) 100 mg/dL (Neg-Trace)
[2020-09-28 00:12] LABS: Blood, Urine Small (Negative)
[2020-09-28 00:13] LABS: Bacteria/HPF Rare-Few HPF (None Seen); Squamous Epithelial 0-3 HPF (0-3); WBC/HPF 0-3 HPF (0-3)
[2020-09-28 00:14] LABS: Mucous/LPF 2+ LPF (<2+)
[2020-09-28 01:13] LABS: Acetaminophen Less than 6.0 mcg/mL (10.0-30.0); Alcohol Less than 10 mg/dL (Less than 10); Salicylate Less than 8.0 mg/dL (15.0-30.0)
[2020-09-28 01:53] LABS: CKMB 2.8 ng/mL (0-6.6)
[2020-09-28 04:05] LABS: ALT (SGPT) 33 U/L (8-55); AST (SGOT) 58 U/L (5-34); Albumin 4.1 g/dL (3.4-4.8); Alkaline Phosphatase 97 U/L (40-110); Anion Gap 23 mmol/L (10-20); BUN (Urea Nitrogen) 5 mg/dL (8.4-25.7); Bilirubin, Total 1.1 mg/dL (0.2-1.2); CK (CPK) 372 U/L (30-200); Calc. Creatinine Clearance 0 mL/min (70-130); Calcium 8.3 mg/dL (7.8-10.44); Carbon Dioxide 23 mmol/L (23-31); Chloride 97 mmol/L (98-107); Estimated GFR-MDRD Greater than 90; Globulin 3.2 g/dL (2.4-3.5); Glucose 250 mg/dL (80-115); Lipase 25 U/L (8-78); Potassium 3.7 mmol/L (3.5-5.1); Protein, Total 7.3 g/dL (5.8-8.1); Sodium 139 mmol/L (136-145)
== END 2020-09-28 00:32 | disposition short-term general hospital (02) ==
LOC: MADERS 19:33
DX: R77.8 Other specified abnormalities of plasma proteins (principal); R56.00 Simple febrile convulsions; E03.9 Hypothyroidism, unspecified; I10 Essential (primary) hypertension; M19.90 Unspecified osteoarthritis, unspecified site; J44.9 Chronic obstructive pulmonary disease, unspecified; N40.0 Benign prostatic hyperplasia without lower urinary tract symptoms; G43.909 Migraine, unspecified, not intractable, without status migrainosus; F32.9 Major depressive disorder, single episode, unspecified; E66.9 Obesity, unspecified; Z87.891 Personal history of nicotine dependence; Z79.51 Long term (current) use of inhaled steroids; Z79.899 Other long term (current) drug therapy
CPT/HCPCS: 70450; 71045; 80053; 80177; 80306; 80307; 81003; 81015; 82550; 82553; 83605; 83690; 84146; 84443; 84484; 85025; 87040; 87086; 87804; 93005; 96365; 96367; 96372; J0692; J1650; J3370; J3411; J3490; J7042; J7050